=== PATIENT | male | born 1960 | race Caucasian/White ===

== ENCOUNTER 2021-10-07 21:08 | Inpatient (IN) ==
[2021-10-07 23:14] LABS: Basophils % 0.1 %; Hematocrit 33.2 % (37.5-50.1); Hemoglobin 11.5 g/dL (12.9-16.9); Immature Granulocytes % 0.7 % (0-4); Lymphocytes # 1.3 K/mcL (0.6-4.6); Lymphocytes % 6.5 %; Mean Corpuscular HGB Conc 34.6 g/dL (31.6-35.5); Mean Corpuscular Volume 89.5 fL (83.0-100.0); Monocytes # 1.7 K/mcL (0.0-1.3); Monocytes % 8.1 %; Neutrophils # 17.4 K/mcL (1.6-8.9); Platelet Count 146 K/mcL (140-400); Red Blood Count 3.71 M/mcL (4.19-5.50); Red Cell Distribution Width 16.1 % (11.5-14.5); Segmented Neutrophils % 84.6 %; White Blood Count 20.6 K/mcL (4.3-11.1)
[2021-10-07] MEDS ORDERED: Morphine Sulfate 2 MG/ML SYRINGE IVP ONE (23:17)
[2021-10-07] MEDS: Pantoprazole 40 MG in 0.9 % Sodium Chloride Mini Bag 100 ML IVC SCH (23:29)
[2021-10-07 23:30] LABS: Calcium 8.5 mg/dL (8.6-10.3); Potassium 4.5 mEq/L (3.5-5.1)
[2021-10-07] MEDS ORDERED: Albuterol 2.5 MG/3 ML NEBULIZER IH ONE (23:41)
[2021-10-08] MEDS: Octreotide 400 MCG in 0.9 % Sodium Chloride 100 ML IVC SCH ×3 (00:02→16:48)
[2021-10-08 00:36] LABS: INR 1.7; Prothrombin Time 18.5 Seconds (9.4-12.1)
[2021-10-08 00:52] LABS: Albumin 2.8 g/dL (3.5-5.7); Albumin/Globulin Ratio 1.2 (1.1-2.2); Bilirubin,Direct 2.7 mg/dL (0.0-0.2); Bilirubin,Indirect 3.2 mg/dL (0.0-1.0); Bilirubin,Total 5.9 mg/dL (0.3-1.0); Globulin 2.3 g/dL (2.4-3.5); Total Protein 5.1 g/dL (6.4-8.9)
[2021-10-08] MEDS ORDERED: Albumin 25% 25gram/100mL 25 GM/100 ML IV.SOLN IVPB ONE (00:57)
[2021-10-08] MEDS ORDERED: Melatonin 3 MG TABLET PO PRN (01:04)
[2021-10-08] MEDS ORDERED: Naloxone 0.4 MG/ML INJ IVP PRN (01:04)
[2021-10-08] MEDS ORDERED: Ondansetron ODT 4 MG TAB.RAPDIS SL PRN (01:04)
[2021-10-08] MEDS ORDERED: 0.9 % Sodium Chloride 1,000 ML IVC SCH ×3 (01:30→05:45)
[2021-10-08] MEDS ORDERED: *HR* LORazepam 2 MG/ML VIAL IVP PRN ×3 (01:35)
[2021-10-08] MEDS ORDERED: cefTRIAXone 2,000 MG in 0.9 % Sodium Chloride 20 ML IVP SCH (03:26)
[2021-10-08] MEDS ORDERED: Albumin 25% 25gram/100mL 25 GM/100 ML IV.SOLN ONE (03:28)
[2021-10-08] MEDS: Pantoprazole 40 MG in 0.9 % Sodium Chloride Mini Bag 100 ML IVC SCH ×3 (03:40→16:45)
[2021-10-08] MEDS: Ipratropium/Albuterol Neb 3 ML IH SCH ×4 (04:15→22:02)
[2021-10-08] MEDS ORDERED: 0.9 % Sodium Chloride 500 ML IVC ONE (04:34)
[2021-10-08 04:42] LABS: Basophils % 0.1 %; Eosinophils % 0.1 %; Hematocrit 31.3 % (37.5-50.1); Hemoglobin 10.8 g/dL (12.9-16.9); Immature Granulocytes % 0.8 % (0-4); Lymphocytes # 1.8 K/mcL (0.6-4.6); Mean Corpuscular HGB Conc 34.5 g/dL (31.6-35.5); Mean Corpuscular Hemoglobin 30.7 pg (28.0-33.3); Mean Corpuscular Volume 88.9 fL (83.0-100.0); Mean Platelet Volume 11.6 fL (9.4-12.4); Monocytes # 1.6 K/mcL (0.0-1.3); Monocytes % 7.1 %; Platelet Count 158 K/mcL (140-400); Red Blood Count 3.52 M/mcL (4.19-5.50); Red Cell Distribution Width 16.9 % (11.5-14.5); Segmented Neutrophils % 83.9 %; White Blood Count 22.7 K/mcL (4.3-11.1)
[2021-10-08 04:51] LABS: INR 1.7; Prothrombin Time 18.5 Seconds (9.4-12.1)
[2021-10-08 05:04] LABS: Acetaminophen < 10 mcg/mL (10-20); Alanine Aminotransferase 136 Units/L (7-52); Albumin 2.8 g/dL (3.5-5.7); Albumin/Globulin Ratio 1.2 (1.1-2.2); Alkaline Phosphatase 95 Units/L (34-104); Aspartate Amino Transferase 616 Units/L (13-39); BUN/Creatinine Ratio 27 (6-26); Bilirubin,Direct 2.5 mg/dL (0.0-0.2); Bilirubin,Indirect 3.2 mg/dL (0.0-1.0); Bilirubin,Total 5.7 mg/dL (0.3-1.0); Blood Urea Nitrogen 53 mg/dL (8-23); Calcium 8.2 mg/dL (8.6-10.3); Carbon Dioxide 26 mEq/L (23-29); Chloride 97 mEq/L (98-107); Ethanol < 10 mg/dL (Less than 10); Globulin 2.3 g/dL (2.4-3.5); Glucose 134 mg/dL (70-105); Magnesium 1.9 mg/dL (1.6-2.6); Osmolality,Calculated 292 (280-300); Phosphorous 4.3 mg/dL (2.7-4.5); Potassium 4.4 mEq/L (3.5-5.1); Sodium 133 mEq/L (136-145); Total Protein 5.1 g/dL (6.4-8.9); eGFR For African Americans 43 (> 60); eGFR For Non-African Americans 35 (> 60)
[2021-10-08 05:29] LABS: Hepatitis B Surface Antigen Nonreactive (Nonreactive)
[2021-10-08] MEDS: Norepinephrine 4 MG/254 ML IV.SOLN IVC SCH ×4 (05:47→11:05)
[2021-10-08] MEDS ORDERED: [UNRECOGNIZED DRUG - OTHER] IVPB ONE (05:48)
[2021-10-08] MEDS ORDERED: HUM PROTHROMBIN CPLX IVPB ONE (05:48)
[2021-10-08] MEDS ORDERED: WATER FOR INJ IVPB ONE (05:48)
[2021-10-08 05:57] LABS: Hepatitis C Virus Antibody Nonreactive (Nonreactive)
[2021-10-08 05:58] LABS: Hepatitis B Core IgM Nonreactive (Nonreactive)
[2021-10-08 05:59] LABS: Hepatitis A Antibody IgM Nonreactive (Nonreactive)
[2021-10-08] MEDS ORDERED: 0.9 % Sodium Chloride 250 ML ONE (06:11)
[2021-10-08] MEDS ORDERED: Ondansetron 4 MG/2 ML VIAL ONE (07:01)
[2021-10-08] MEDS ORDERED: Ondansetron 4 MG/2 ML VIAL IVP ONE ×2 (07:02→07:10)
[2021-10-08] MEDS ORDERED: Thiamine (B-1) 200 MG in 0.9 % Sodium Chloride 50 ML IVPB SCH (09:00)
[2021-10-08] MEDS ORDERED: Nicotine 21 MG PATCH.TD24 TD SCH (09:00)
[2021-10-08] MEDS ORDERED: Folic Acid 1 MG TABLET PO SCH (09:00)
[2021-10-08 09:03] LABS: Basophils % 0.1 %; Hematocrit 25.1 % (37.5-50.1); Immature Granulocytes % 0.8 % (0-4); Lymphocytes # 0.8 K/mcL (0.6-4.6); Lymphocytes % 3.2 %; Mean Corpuscular HGB Conc 32.7 g/dL (31.6-35.5); Mean Corpuscular Hemoglobin 30.3 pg (28.0-33.3); Mean Corpuscular Volume 92.6 fL (83.0-100.0); Mean Platelet Volume 10.6 fL (9.4-12.4); Monocytes # 2.2 K/mcL (0.0-1.3); Monocytes % 9.3 %; Neutrophils # 20.4 K/mcL (1.6-8.9); Platelet Count 167 K/mcL (140-400); Red Blood Count 2.71 M/mcL (4.19-5.50); Red Cell Distribution Width 16.6 % (11.5-14.5); Segmented Neutrophils % 86.6 %; White Blood Count 23.6 K/mcL (4.3-11.1)
[2021-10-08 09:07] LABS: VBG Ionized Calcium 0.86 mmol/L (1.15-1.35)
[2021-10-08 09:08] LABS: Hemoglobin 8.2 g/dL (12.9-16.9)
[2021-10-08] MEDS ORDERED: Piperacillin/Tazobactam 3.375 GM in 0.9 % Sodium Chloride Mini Bag 100 ML IVPB SCH (10:00)
[2021-10-08 10:28] LABS: Calcium 7.3 mg/dL (8.6-10.3); Magnesium 1.8 mg/dL (1.6-2.6); Potassium 4.5 mEq/L (3.5-5.1)
[2021-10-08] MEDS ORDERED: Calcium Chloride 2,000 MG in 0.9 % Sodium Chloride 100 ML IVPB ONE (11:59)
[2021-10-08] MEDS ORDERED: Vasopressin 40 UNIT in D5% in Water 100 ML IVC SCH (12:00)
[2021-10-08] MEDS ORDERED: *HR* Propofol 200 MG/20 ML VIAL IVP ONE (13:11)
[2021-10-08] MEDS ORDERED: *HR* Succinylcholine 200 MG/10 ML VIAL IVP ONE (13:13)
[2021-10-08 13:29] LABS: ABG Base Excess -21 mEq/L (-2 to 3); ABG Chloride 105 mEq/L (98-107); ABG Glucose 65 mg/dL (60-95); ABG HCO3 6 mEq/L (21-27); ABG Ionized Calcium 1.31 mmol/L (1.15-1.35); ABG Oxygen Saturation 96 % (95-98); ABG PCO2 18 mmHg (35-45); ABG PH 7.15 pH Units (7.32-7.45); ABG PO2 101 mmHg (85-104); ABG TCO2 7 mEq/L (20-26)
[2021-10-08] MEDS ORDERED: *HR* Rocuronium Bromide 50 MG/5 ML VIAL ONE (13:30)
[2021-10-08] MEDS ORDERED: *HR* Midazolam HCl 2 MG/2 ML VIAL ONE ×2 (13:31→14:21)
[2021-10-08] MEDS ORDERED: Sodium Bicarbonate 150 MEQ in D5% in Water 1,000 ML IVC SCH (14:00)
[2021-10-08] MEDS ORDERED: Dexmedetomidine HCl 400 MCG/100 ML MLS IVC SCH (15:15)
[2021-10-08] MEDS ORDERED: FentaNYL (PF) 1,000 MCG/100 ML IV.SOLN IVC SCH (15:15)
[2021-10-08] MEDS ORDERED: Artificial Tears SOLN 15 ML BOTTLE BOTH EYES PRN (15:15)
[2021-10-08] MEDS ORDERED: Norepinephrine 32 MG/250 ML IV.SOLN IVC SCH (15:30)
[2021-10-08 15:43] LABS: VBG Ionized Calcium 1.18 mmol/L (1.15-1.35)
[2021-10-08 15:48] LABS: ABG Base Excess -14 mEq/L (-2 to 3); ABG HCO3 16 mEq/L (21-27); ABG Oxygen Saturation 100 % (95-98); ABG PCO2 52 mmHg (35-45); ABG PO2 315 mmHg (85-104); ABG TCO2 17 mEq/L (20-26); Blood Gas Modality AF; Blood Gas VT 500 cc
[2021-10-08] MEDS: Artificial Tears SOLN 15 ML BOTTLE BOTH EYES SCH ×2 (15:52→22:02)
[2021-10-08 15:58] LABS: Albumin 1.9 g/dL (3.5-5.7); Albumin/Globulin Ratio 1.5 (1.1-2.2); Bilirubin,Total 4.6 mg/dL (0.3-1.0); Calcium 9.1 mg/dL (8.6-10.3); Globulin 1.3 g/dL (2.4-3.5); Magnesium 1.7 mg/dL (1.6-2.6); Phosphorous 7.5 mg/dL (2.7-4.5); Potassium 4.4 mEq/L (3.5-5.1); Total Protein 3.2 g/dL (6.4-8.9)
[2021-10-08] MEDS ORDERED: Phenylephrine 50 MG in 0.9 % Sodium Chloride 250 ML IVC SCH (16:00)
[2021-10-08] MEDS ORDERED: methylPREDNISolone 125 MG/2 ML VIAL IVP SCH (16:00)
[2021-10-08] MEDS ORDERED: Magnesium Sulfate 1 GM/102 ML PIGGYBACK IVPB ONE (16:01)
[2021-10-08] MEDS ORDERED: Perflutren Lipid Microsphere 1.3 ML in 0.9 % Sodium Chloride 8.7 ML IVP PRN (16:42)
[2021-10-08] MEDS ORDERED: Calcium Gluconate 1gm/50mL 1 GM/50 ML BAG IVPB PRN (16:45)
[2021-10-08 16:57] LABS: Hematocrit 35.8 % (37.5-50.1)
[2021-10-08 16:58] LABS: Hemoglobin 11.5 g/dL (12.9-16.9)
[2021-10-08 17:49] LABS: ABG Base Excess -19 mEq/L (-2 to 3); ABG HCO3 11 mEq/L (21-27); ABG Oxygen Saturation 95 % (95-98); ABG PCO2 38 mmHg (35-45); ABG PH 7.06 pH Units (7.32-7.45); ABG PO2 106 mmHg (85-104); ABG TCO2 12 mEq/L (20-26); Blood Gas Modality AF; Blood Gas VT 500 cc
[2021-10-08] MEDS ORDERED: 0.9 % Sodium Chloride 1,000 ML ONE (18:20)
[2021-10-08] MEDS ORDERED: Furosemide 40 MG/4 ML VIAL IVP ONE (18:48)
[2021-10-08] MEDS ORDERED: D5 IVC SCH ×3 (19:00)
[2021-10-08] MEDS ORDERED: Piperacillin/Tazobactam 3.375 GM in D5% in Water (Mini-Bag+) 100 ML IVPB SCH ×2 (19:00)
[2021-10-08] MEDS ORDERED: NOREPINEPHRINE IVC SCH (19:00)
[2021-10-08] MEDS ORDERED: PANTOPRAZOLE IVC SCH (19:00)
[2021-10-08] MEDS ORDERED: WATER IVC SCH ×3 (19:00)
[2021-10-08] MEDS ORDERED: Phenylephrine 50 MG in D5% in Water 250 ML IVC SCH (19:00)
[2021-10-08] MEDS ORDERED: OCTREOTIDE IVC SCH (19:00)
[2021-10-08 20:33] LABS: Red Cell Distribution Width 17.2 % (11.5-14.5)
[2021-10-08 20:35] LABS: Immature Platelets 7.7 % (1.1-6.1); Mean Platelet Volume 10.4 fL (9.4-12.4)
[2021-10-08 20:37] LABS: VBG Ionized Calcium 0.92 mmol/L (1.15-1.35)
[2021-10-08 20:40] LABS: Basophils % 0.1 %; Hematocrit 31.2 % (37.5-50.1); Hemoglobin 10.2 g/dL (12.9-16.9); Immature Granulocytes % 1.3 % (0-4); Lymphocytes # 0.4 K/mcL (0.6-4.6); Lymphocytes % 2.2 %; Mean Corpuscular HGB Conc 32.7 g/dL (31.6-35.5); Mean Corpuscular Hemoglobin 30.3 pg (28.0-33.3); Mean Corpuscular Volume 92.6 fL (83.0-100.0); Monocytes # 1.7 K/mcL (0.0-1.3); Monocytes % 9.6 %; Neutrophils # 15.7 K/mcL (1.6-8.9); Red Blood Count 3.37 M/mcL (4.19-5.50); Segmented Neutrophils % 86.8 %; White Blood Count 18.1 K/mcL (4.3-11.1)
[2021-10-08] MEDS ORDERED: Albumin Human 5% 25.0 GM/500 ML IV.SOLN ONE (20:45)
[2021-10-08 20:51] LABS: Calcium 8.4 mg/dL (8.6-10.3); Potassium 3.9 mEq/L (3.5-5.1)
[2021-10-08 20:51] LABS: ABG Base Excess -12 mEq/L (-2 to 3); ABG HCO3 17 mEq/L (21-27); ABG Oxygen Saturation 100 % (95-98); ABG PCO2 48 mmHg (35-45); ABG PH 7.15 pH Units (7.32-7.45); ABG PO2 574 mmHg (85-104); ABG TCO2 18 mEq/L (20-26); Blood Gas VT 500 cc
[2021-10-08] MEDS ORDERED: Chlorhexidine Rinse 15 ML MOUTHWASH MM SCH (21:00)
[2021-10-08 21:06] LABS: Platelet Count 98 K/mcL (140-400)
[2021-10-08 21:07] LABS: Platelet Estimate Decreased (Normal)
[2021-10-08] MEDS: Albumin Human 5% 12.5 GM/250 ML IV.SOLN IVC SCH ×2 (21:23→21:24)
[2021-10-08 21:58] VITALS: TEMP 96
[2021-10-08 22:28] VITALS: BP 64/46; PULSE 131; O2SAT 100
[2021-10-08] MEDS ORDERED: *HR* LORazepam 2 MG/ML VIAL IVP SCH (23:15)
[2021-10-09] MEDS ORDERED: Thiamine (B-1) 200 MG in D5% in Water 50 ML IVPB SCH (09:00)
== END 2021-10-08 23:25 | disposition expired | DRG 368 ==
LOC: 2NENU 21:08 → EMEROOARM 21:08 → SUATTDRO 10-08 01:32 → 2NENU 10-08 02:34 → 2NNU 10-08 04:47 → ICNU 10-08 08:27
PROVIDERS: ADMIT Student in an Organized Health Care Education/Training Program; ATTEND Internal Medicine